=== PATIENT | female | born 1960 | race Caucasian/White ===

== ENCOUNTER 2018-05-12 23:00 | Inpatient (IN) | payer OTHER ==
[2018-05-13] MEDS ORDERED: GLUCAGON 1 MG INJ IM (01:00)
[2018-05-13] MEDS ORDERED: GLUCOSE GEL 15 GRAM TUBE BUCCAL (01:00)
[2018-05-13] MEDS ORDERED: DEXTROSE 50% 50 ML SYRINGE IV ×2 (01:00)
[2018-05-13] MEDS ORDERED: GLUCOSE GEL 15 GRAM TUBE PO ×2 (01:00)
[2018-05-13] MEDS: GABAPENTIN 300 MG CAP PO ×2 (01:00→21:11)
[2018-05-13] MEDS: SOD CHLORIDE 0.9% 1,000 ML IV ×2 (01:38→19:38)
[2018-05-13] MEDS: ACCU-CHEK XX (02:00)
[2018-05-13] MEDS: PANTOPRAZOLE 40 MG INJ IV (05:33)
[2018-05-13 06:08] LABS: ADD MAN DIFF? NO
[2018-05-13 06:17] LABS: BASOPHILS % 0.4 % (0.0-2.0); HEMATOCRIT 37.6 % (37.0-47.0); HEMOGLOBIN 12.1 g/dl (12.0-16.0); LYMPHOCYTES # 0.7 10^3/ul (0.8-2.9); LYMPHOCYTES % 15.3 % (15.0-51.0); MEAN CORPUSCULAR HEMOGLOBIN 29.7 pg (29.0-33.0); MEAN CORPUSCULAR HGB CONC 32.2 g/dl (32.0-37.0); MEAN CORPUSCULAR VOLUME 92.4 fl (82.0-101.0); MEAN PLATELET VOLUME 10.1 fl (7.4-10.4); MONOCYTE # 0.6 10^3/ul (0.3-0.9); MONOCYTES % 12.1 % (0.0-11.0); NEUTROPHIL # 3.3 10^3/ul (1.6-7.5); NEUTROPHILS % 71.8 % (39.0-77.0); PLATELET COUNT 217 10^3/UL (140-415); RED BLOOD COUNT 4.07 10^6/ul (4.20-5.40); RED CELL DISTRIBUTION WIDTH 12.3 % (11.5-14.5)
[2018-05-13 06:17] LABS: WHITE BLOOD COUNT 4.6 10^3/ul (4.8-10.8)
[2018-05-13 06:31] LABS: ALANINE AMINOTRANSFERASE 19 IU/L (13-69); ALBUMIN 3.5 g/dl (3.3-4.9); ALBUMIN/GLOBULIN RATIO 1.16; ALKALINE PHOSPHATASE 109 IU/L (42-121); ANION GAP 12 (5-13); ASPARTATE AMINO TRANSFERASE 23 IU/L (15-46); BILIRUBIN,INDIRECT 0.3 mg/dl (0-1.1); BILIRUBIN,TOTAL 0.3 mg/dl (0.2-1.3); BLOOD UREA NITROGEN 21 mg/dl (7-20); CALCIUM 8.2 mg/dl (8.4-10.2); CARBON DIOXIDE 28 mmol/L (21-31); CHLORIDE 98 mmol/L (97-110); CREATININE 0.98 mg/dl (0.44-1.00); Estimated GFR 58 mL/min (>60); GLUCOSE 281 mg/dl (70-220); SODIUM 138 mmol/L (135-144); TOTAL PROTEIN 6.5 g/dl (6.1-8.1)
[2018-05-13 06:33] LABS: POTASSIUM 4.1 mmol/L (3.5-5.1)
[2018-05-13] MEDS: ASPIRIN (EC) 81 MG TAB PO (08:17)
[2018-05-13] MEDS: BENAZEPRIL 40 MG TAB PO (08:17)
[2018-05-13] MEDS: INSULIN ASPART [NOVOLOG] 3 ML PEN SC ×5 (08:19→21:20)
[2018-05-13] MEDS: EZETIMIBE 10 MG TAB PO (10:47)
[2018-05-13 14:47] LABS: LIPASE 389 U/L (23-300)
[2018-05-13] MEDS: CEFTRIAXONE 1 GM/50 ML (PMX) 50 ML IVPB (16:15)
[2018-05-13] MEDS: ATORVASTATIN 80 MG TAB PO (21:11)
[2018-05-13] MEDS: ACETAMINOPHEN 325 MG TAB PO (21:11)
[2018-05-13] MEDS: INSULIN GLARGINE [LANTus] (100 UNITS/ML) SYG SC (21:19)
[2018-05-14 00:23] LABS: ADD UMIC YES; UR ASCORBIC ACID NEGATIVE (NEGATIVE); UR BACTERIA FEW /HPF (NONE SEEN); UR BILIRUBIN (Dip) NEGATIVE (NEGATIVE); UR BLOOD (Dip) NEGATIVE (NEGATIVE); UR CLARITY CLEAR (CLEAR); UR COLOR YELLOW (YELLOW); UR GLUCOSE (Dip) 3+ mg/dL (NEGATIVE); UR KETONES (Dip) TRACE mg/dL (NEGATIVE); UR LEUKOCYTE ESTERASE (Dip) NEGATIVE Leu/ul (NEGATIVE); UR MUCUS FEW /HPF (NONE SEEN); UR NITRITE (Dip) NEGATIVE (NEGATIVE); UR RBC 1 /HPF (0-5); UR SPECIFIC GRAVITY (Dip) 1.021 (1.003-1.030); UR TOTAL PROTEIN (Dip) 2+ mg/dl (NEGATIVE); UR UROBILINOGEN (Dip) NEGATIVE (NEGATIVE); UR WBC 2 /HPF (0-5)
[2018-05-14] MEDS: ACCU-CHEK XX (02:00)
[2018-05-14] MEDS ORDERED: ACCU-CHEK XX (02:00)
[2018-05-14 06:20] LABS: ADD MAN DIFF? NO
[2018-05-14 06:24] LABS: BASOPHILS % 0.2 % (0.0-2.0); HEMATOCRIT 37.6 % (37.0-47.0); HEMOGLOBIN 11.9 g/dl (12.0-16.0); LYMPHOCYTES % 18.6 % (15.0-51.0); MEAN CORPUSCULAR HEMOGLOBIN 29.2 pg (29.0-33.0); MEAN CORPUSCULAR HGB CONC 31.6 g/dl (32.0-37.0); MEAN CORPUSCULAR VOLUME 92.2 fl (82.0-101.0); MEAN PLATELET VOLUME 10.4 fl (7.4-10.4); MONOCYTE # 0.6 10^3/ul (0.3-0.9); MONOCYTES % 11.2 % (0.0-11.0); NEUTROPHIL # 3.9 10^3/ul (1.6-7.5); NEUTROPHILS % 69.6 % (39.0-77.0); PLATELET COUNT 188 10^3/UL (140-415); RED BLOOD COUNT 4.08 10^6/ul (4.20-5.40); RED CELL DISTRIBUTION WIDTH 12.2 % (11.5-14.5)
[2018-05-14 06:24] LABS: WHITE BLOOD COUNT 5.5 10^3/ul (4.8-10.8)
[2018-05-14] MEDS: PANTOPRAZOLE 40 MG INJ IV (06:27)
[2018-05-14 07:00] LABS: PHOSPHORUS 2.6 mg/dl (2.5-4.9)
[2018-05-14 07:01] LABS: ANION GAP 7 (5-13); BLOOD UREA NITROGEN 20 mg/dl (7-20); CALCIUM 7.9 mg/dl (8.4-10.2); CARBON DIOXIDE 27 mmol/L (21-31); CHLORIDE 103 mmol/L (97-110); CREATININE 0.89 mg/dl (0.44-1.00); Estimated GFR > 60 mL/min (>60); GLUCOSE 270 mg/dl (70-220); POTASSIUM 4.5 mmol/L (3.5-5.1); SODIUM 137 mmol/L (135-144)
[2018-05-14] MEDS: INSULIN ASPART [NOVOLOG] 3 ML PEN SC ×6 (08:02→18:00)
[2018-05-14] MEDS: ASPIRIN (EC) 81 MG TAB PO (08:03)
[2018-05-14] MEDS: ACETAMINOPHEN 325 MG TAB PO (08:03)
[2018-05-14] MEDS: EZETIMIBE 10 MG TAB PO (08:03)
[2018-05-14] MEDS: BENAZEPRIL 40 MG TAB PO (08:04)
[2018-05-14] MEDS: metroNIDAZOLE 500 MG/NS (PMX) 100 ML IVPB ×3 (11:14→21:48)
[2018-05-14] MEDS: DULOXETINE 30 MG CAP DR PO (11:30)
[2018-05-14] MEDS: GABAPENTIN 300 MG CAP PO ×2 (14:53→20:37)
[2018-05-14] MEDS: CEFTRIAXONE 1 GM/50 ML (PMX) 50 ML IVPB (15:59)
[2018-05-14] MEDS: SOD CHLORIDE 0.9% 1,000 ML IV (18:00)
[2018-05-14] MEDS: ATORVASTATIN 80 MG TAB PO (20:37)
[2018-05-14] MEDS: INSULIN GLARGINE [LANTus] (100 UNITS/ML) SYG SC (20:37)
[2018-05-15] MEDS: ACCU-CHEK XX (00:03)
[2018-05-15 05:14] LABS: ADD MAN DIFF? NO
[2018-05-15 05:15] LABS: WHITE BLOOD COUNT 4.3 10^3/ul (4.8-10.8)
[2018-05-15 05:15] LABS: BASOPHILS % 0.2 % (0.0-2.0); HEMATOCRIT 36.9 % (37.0-47.0); HEMOGLOBIN 11.9 g/dl (12.0-16.0); LYMPHOCYTES # 1.5 10^3/ul (0.8-2.9); LYMPHOCYTES % 34.6 % (15.0-51.0); MEAN CORPUSCULAR HGB CONC 32.2 g/dl (32.0-37.0); MEAN PLATELET VOLUME 10.4 fl (7.4-10.4); MONOCYTE # 0.5 10^3/ul (0.3-0.9); MONOCYTES % 10.8 % (0.0-11.0); NEUTROPHIL # 2.4 10^3/ul (1.6-7.5); NEUTROPHILS % 54.2 % (39.0-77.0); PLATELET COUNT 188 10^3/UL (140-415); RED CELL DISTRIBUTION WIDTH 12.2 % (11.5-14.5)
[2018-05-15] MEDS: metroNIDAZOLE 500 MG/NS (PMX) 100 ML IVPB ×3 (05:23→22:27)
[2018-05-15] MEDS: INSULIN ASPART [NOVOLOG] 3 ML PEN SC ×7 (05:24→17:25)
[2018-05-15] MEDS: PANTOPRAZOLE 40 MG INJ IV (05:24)
[2018-05-15] MEDS: SOD CHLORIDE 0.9% 1,000 ML IV ×2 (05:24→17:27)
[2018-05-15 05:31] LABS: INR 0.97
[2018-05-15 05:32] LABS: PARTIAL THROMBOPLASTIN TIME 32.6 Sec (23.0-35.0)
[2018-05-15 06:01] LABS: ALANINE AMINOTRANSFERASE 27 IU/L (13-69); ALBUMIN 3.2 g/dl (3.3-4.9); ALBUMIN/GLOBULIN RATIO 1.03; ALKALINE PHOSPHATASE 85 IU/L (42-121); ANION GAP 9 (5-13); ASPARTATE AMINO TRANSFERASE 29 IU/L (15-46); BILIRUBIN,INDIRECT 0.2 mg/dl (0-1.1); BILIRUBIN,TOTAL 0.2 mg/dl (0.2-1.3); BLOOD UREA NITROGEN 15 mg/dl (7-20); CALCIUM 7.9 mg/dl (8.4-10.2); CARBON DIOXIDE 27 mmol/L (21-31); CHLORIDE 100 mmol/L (97-110); CREATININE 0.75 mg/dl (0.44-1.00); Estimated GFR > 60 mL/min (>60); GLUCOSE 143 mg/dl (70-220); LIPASE 238 U/L (23-300); SODIUM 136 mmol/L (135-144); TOTAL PROTEIN 6.3 g/dl (6.1-8.1)
[2018-05-15] MEDS: DULOXETINE 30 MG CAP DR PO ×2 (08:23→09:13)
[2018-05-15] MEDS: ASPIRIN (EC) 81 MG TAB PO ×2 (08:23→09:16)
[2018-05-15] MEDS: AMLODIPINE 10 MG TAB PO ×2 (08:24→09:13)
[2018-05-15] MEDS: BENAZEPRIL 40 MG TAB PO ×2 (08:24→09:13)
[2018-05-15] MEDS: EZETIMIBE 10 MG TAB PO ×2 (08:24→09:13)
[2018-05-15] MEDS: GABAPENTIN 300 MG CAP PO ×3 (08:24→22:27)
[2018-05-15] MEDS: ENOXAPARIN 40 MG/0.4 ML SYG SC (09:52)
[2018-05-15] MEDS: ONDANSETRON 4 MG INJ IV (11:41)
[2018-05-15] MEDS: CEFTRIAXONE 1 GM/50 ML (PMX) 50 ML IVPB (14:58)
[2018-05-15] MEDS: ATORVASTATIN 80 MG TAB PO (22:27)
[2018-05-15] MEDS: INSULIN GLARGINE [LANTus] (100 UNITS/ML) SYG SC (22:36)
[2018-05-16] MEDS: ACCU-CHEK XX (01:01)
[2018-05-16 05:37] LABS: ADD MAN DIFF? NO
[2018-05-16 05:44] LABS: BASOPHILS % 0.5 % (0.0-2.0); HEMATOCRIT 35.8 % (37.0-47.0); HEMOGLOBIN 11.3 g/dl (12.0-16.0); LYMPHOCYTES # 1.6 10^3/ul (0.8-2.9); LYMPHOCYTES % 39.2 % (15.0-51.0); MEAN CORPUSCULAR HEMOGLOBIN 29.1 pg (29.0-33.0); MEAN CORPUSCULAR HGB CONC 31.6 g/dl (32.0-37.0); MEAN CORPUSCULAR VOLUME 92.3 fl (82.0-101.0); MEAN PLATELET VOLUME 10.7 fl (7.4-10.4); MONOCYTE # 0.5 10^3/ul (0.3-0.9); MONOCYTES % 11.4 % (0.0-11.0); NEUTROPHILS % 48.7 % (39.0-77.0); PLATELET COUNT 165 10^3/UL (140-415); RED BLOOD COUNT 3.88 10^6/ul (4.20-5.40)
[2018-05-16 05:44] LABS: WHITE BLOOD COUNT 4.1 10^3/ul (4.8-10.8)
[2018-05-16 05:55] LABS: LIPASE 219 U/L (23-300)
[2018-05-16] MEDS: PANTOPRAZOLE 40 MG INJ IV (06:03)
[2018-05-16] MEDS: metroNIDAZOLE 500 MG/NS (PMX) 100 ML IVPB ×3 (06:03→22:55)
[2018-05-16 06:08] LABS: ANION GAP 8 (5-13); BLOOD UREA NITROGEN 12 mg/dl (7-20); CALCIUM 7.9 mg/dl (8.4-10.2); CARBON DIOXIDE 27 mmol/L (21-31); CHLORIDE 101 mmol/L (97-110); CREATININE 0.72 mg/dl (0.44-1.00); Estimated GFR > 60 mL/min (>60); GLUCOSE 131 mg/dl (70-220); POTASSIUM 3.9 mmol/L (3.5-5.1); SODIUM 136 mmol/L (135-144)
[2018-05-16] MEDS: DULOXETINE 30 MG CAP DR PO (08:52)
[2018-05-16] MEDS: ASPIRIN (EC) 81 MG TAB PO (08:53)
[2018-05-16] MEDS: AMLODIPINE 10 MG TAB PO (08:53)
[2018-05-16] MEDS: EZETIMIBE 10 MG TAB PO (08:53)
[2018-05-16] MEDS: GABAPENTIN 300 MG CAP PO ×3 (08:53→20:25)
[2018-05-16] MEDS: BENAZEPRIL 40 MG TAB PO (08:54)
[2018-05-16] MEDS: INSULIN ASPART [NOVOLOG] 3 ML PEN SC ×7 (08:58→20:28)
[2018-05-16] MEDS: ENOXAPARIN 40 MG/0.4 ML SYG SC (08:59)
[2018-05-16] MEDS: SOD CHLORIDE 0.9% 1,000 ML IV (12:34)
[2018-05-16] MEDS: CEFTRIAXONE 1 GM/50 ML (PMX) 50 ML IVPB (17:43)
[2018-05-16] MEDS: ATORVASTATIN 80 MG TAB PO (20:25)
[2018-05-16] MEDS: INSULIN GLARGINE [LANTus] (100 UNITS/ML) SYG SC (20:29)
[2018-05-17] MEDS: SOD CHLORIDE 0.9% 1,000 ML IV ×2 (01:29→09:44)
[2018-05-17] MEDS: ACCU-CHEK XX (02:00)
[2018-05-17] MEDS: PANTOPRAZOLE 40 MG INJ IV (06:16)
[2018-05-17] MEDS: metroNIDAZOLE 500 MG/NS (PMX) 100 ML IVPB (06:16)
[2018-05-17] MEDS: INSULIN ASPART [NOVOLOG] 3 ML PEN SC ×4 (08:20→12:11)
[2018-05-17] MEDS: ENOXAPARIN 40 MG/0.4 ML SYG SC (08:21)
[2018-05-17] MEDS: EZETIMIBE 10 MG TAB PO (08:22)
[2018-05-17] MEDS: ASPIRIN (EC) 81 MG TAB PO (08:22)
[2018-05-17] MEDS: DULOXETINE 30 MG CAP DR PO (08:22)
[2018-05-17] MEDS: AMLODIPINE 10 MG TAB PO (09:46)
[2018-05-17] MEDS: GABAPENTIN 300 MG CAP PO ×2 (09:46→12:35)
[2018-05-17] MEDS: BENAZEPRIL 40 MG TAB PO (09:46)
== END 2018-05-17 14:13 | disposition home or self-care (01) | DRG 439 ==
LOC: MS1 23:00 → PP2 23:15
PROVIDERS: Internal Medicine Nephrology
DX: K85.90 Acute pancreatitis without necrosis or infection, unspecified (principal); N17.9 Acute kidney failure, unspecified; I10 Essential (primary) hypertension; E66.9 Obesity, unspecified; E86.0 Dehydration; E11.42 Type 2 diabetes mellitus with diabetic polyneuropathy; E78.5 Hyperlipidemia, unspecified; Z68.38 Body mass index [BMI] 38.0-38.9, adult; Z90.710 Acquired absence of both cervix and uterus; Z79.4 Long term (current) use of insulin
CPT/HCPCS: 71045; 74181; 76705; 80048; 80053; 81001; 82962; 83036; 83690; 83735; 84100; 85025; 85610; 85730; 87040; 87081